=== PATIENT | female | born 1985 | race Caucasian/White ===

== ENCOUNTER 2016-11-01 06:52 | Emergency (ER) | payer BC ==
--- NOTE | 2016-11-01 07:46 | EDM.PDOC ---
ED HPI GENERAL MEDICAL PROBLEM - General Chief Complaint: Respiratory Problem Stated Complaint: SOB,Cough, Rib pain Preq Time Seen by Provider: 11/01/16 07:25 Source of Information: Reports: Patient History Limitations: Reports: No Limitations - History of Present Illness INITIAL COMMENTS - FREE TEXT/NARRATIVE: Pt is a 8 month female, who presents to the emergency room with vague complaints. She claims that she had some pain in her right lower chest last night. pain is sharp and stabbing type, and would hurt when she took deep breath. No fever or chills. She went to bed and in the morning she claims that her pain has got worse in the same area. Hurts to take deep breath or on pressure over one particular part of the lower chest to pressure. She claims she is short of breath( but is breathing at the rate of 12-14/minute and her SPO2 on room air is 99%, appears very comfortable). Has been feeling good movements. No vaginal discharge or pelvic pain. NO trauma to the chest or abdomen. She feels better sitting and lying down makes it worse.Rates her pain at 9/10 when she lyes down and 6/10 when she sits. She has noticed some cough today. 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 Denies: Shortness of Breath , Wheezing, Sputum Cardiovascular: Denies: Chest Pain, Lightheadedness GI/Abdominal: Reports: Flatus. Denies: Abdominal Pain, Constipation, Distension , Nausea, Vomiting : Denies: Dysuria, Flank Pain Musculoskeletal: Denies: Joint Pain, Joint Swelling Skin: Denies: Pruritis, Rash, Erythema Neurological: Denies: Confusion, Dizziness ED EXAM, GENERAL - Physical Exam Exam: See Below Exam Limited By: No Limitations General Appearance: Alert, WD/WN, No Apparent Distress Eye Exam: Bilateral Eye: EOMI, PERRL Ears: Normal External Exam, Normal Canal, Hearing Grossly Normal, Normal TMs Ear Exam: Bilateral Ear: Auricle Normal, Canal Normal, TM normal Nose: Normal Inspection, Normal Mucosa, No Blood Throat/Mouth: Normal Inspection, Normal Lips, Normal Teeth, Normal Gums, Normal Oropharynx, Normal Voice, No Airway Compromise Head: Atraumatic, Normocephalic Neck: Normal Inspection, Supple, Non-Tender, Full Range of Motion Respiratory/Chest: No Respiratory Distress, Lungs Clear, Normal Breath Sounds, No Accessory Muscle Use, Chest Non-Tender, Other (Pt is not short of breath, she is brething normally, she describes her chest apin with deep breathing as shortness of breath.) Cardiovascular: Normal Peripheral Pulses, Regular Rate, Rhythm, No Edema, No Gallop, No JVD, No Murmur, No Rub Peripheral Pulses: 2+: Radial (L), Radial (R) GI/Abdominal: Normal Bowel Sounds, Soft, No Organomegaly, No Distention, No Abnormal Bruit, No Mass, Tender (Pt is tender over the right upper quadrant of the abdomen. The pain is superficial in the abdominal wall over the in the right upper quadrant only in a particular area about 2cm by 2cm just distal to the costal margin. No mass or swelling felt. no rib cage tenderness along the right costal margin.), Other (Gravid uterus. heart tones are reactive and reassuring.) Course - Vital Signs Text/Narrative:: Pt's CBC is normal. CMP is normal. UA is WNL. Chest xray does not show consolidation . Pt has a gradually worsening right upper quadrant , abdominal wall pain. It does appear like it is of musculoskelatal origin. Hurts with deep breathing and movement. it improves with sitting up and worse with lying down makes it more of musculoskelatal origin ( as it hurts more when she lyes down is because of the gravid uterus pushing upwards into the upper abdomen and less pain with sitting is because of the pull of the uterus into lower abdomen and pelvis). This could have happen from strain to abdominal wall with some activity like suddenly sitting or getting up or lifting something heavy, which patient thinks has not happened. Did get abdominal ultrasound today.Which shows Gall stones in the Bladder which appears like incidental finding. I have discussed the labs and ultrasound results with Dr. Shultz, her OB-DEVELOPMENT SPECIALIST at [place]. Advised intermittent heat tot he area and tylenol 50mmg every 6 hrs as needed. Followup with Dr. Shultz in next1 wk. Last Recorded V/S: Last Vital Signs Temp 98.7 F 11/01/16 07:55 Pulse 90 11/01/16 07:55 Resp 12 11/01/16 07:55 BP 109/69 11/01/16 07:55 Pulse Ox 100 11/01/16 07:55 - Orders/Labs/Meds Orders: Active Orders 24 hr Category Date Time Status Abdomen Ltd [US] Stat Exams 11/01/16 07:40 Ordered Chest 1V Frontal [CR] Stat Exams 11/01/16 07:25 Taken Labs: Laboratory Tests 11/01/16 11/01/16 11/01/16 Range/Units 07:20 07:25 07:40 WBC 11.4 H (4.0-11.0) K/uL RBC 4.19 (3.80-5.80) M/uL Hgb 13.1 (11.5-16.5) g/dL Hct 38.0 (37.0-47.0) % MCV 91 (76-96) fL MCH 31.3 (27.0-32.0) pg MCHC 34.5 (31.0-35.0) g/dL RDW 13.2 (11.0-16.0) % Plt Count 270 (150-500) K/uL MPV 9.7 (6.0-10.0) fL Neut % (Auto) 82.2 H (45.0-70.0) % Lymph % (Auto) 12.9 L (20.0-40.0) % Banner % (Auto) 4.0 (3.0-10.0) % Eos % (Auto) 0.6 L (1.0-5.0) % Baso % (Auto) 0.3 (0.0-0.5) % Neut # (Auto) 9.37 H (2.00-7.50) K/uL Lymph # (Auto) 1.47 L (1.50-4.00) K/uL Banner # (Auto) 0.46 (0.20-0.80) K/uL Eos # (Auto) 0.07 (0.04-0.40) K/uL Baso # (Auto) 0.03 (0.02-0.10) K/uL Sodium 137 (136-145) mmol/L Potassium 4.2 (3.5-5.1) mmol/L Chloride 103 (98-107) mmol/L Carbon Dioxide 23.6 (21.0-32.0) mmol/L Anion Gap 14.6 (5.0-15.0) mmol/L BUN 7 L (8-26) mg/dL Creatinine 0.69 (0.55-1.02) mg/dL Est Cr Clr Drug Dosing 123.46 mL/min Estimated GFR (MDRD) > 60 (>60) MLS/MIN BUN/Creatinine Ratio 10.1 (6-25) Glucose 129 H (74-100) mg/dL Calcium 9.1 (8.5-10.1) mg/dL Total Bilirubin 0.2 (0.0-1.0) mg/dL AST 13 L (15-37) U/L ALT 25 (12-78) U/L Alkaline Phosphatase 76 (46-116) U/L Total Protein 6.8 (6.4-8.2) g/dL Albumin 3.0 L (3.4-5.0) g/dL Globulin 3.8 (2.2-4.2) g/dL Albumin/Globulin Ratio 0.8 (0.8-2.0) Urine Color Yellow Urine Appearance Clear (CLEAR) Urine pH 6.0 (5.0-8.0) Ur Specific [place] 1.010 (1.003-1.030) Urine Protein Negative (NEGATIVE) mg/dL Urine Glucose (UA) 100 H (NEGATIVE) mg/dL Urine Ketones Negative (NEGATIVE) mg/dL Urine Occult Blood Negative (NEGATIVE) Urine Nitrite Negative (NEGATIVE) Urine Bilirubin Negative (NEGATIVE) Urine Urobilinogen 0.2 (0.2-1.0) E.U./dL Ur Leukocyte Esterase Small H (NEGATIVE) Urine RBC Not seen /HPF Urine WBC 0-5 H /HPF Ur Squamous Epith Cells Moderate /HPF Urine Bacteria Few /HPF Departure - Departure Time of Disposition: 10:15 Disposition: Home, Self-Care 01 Condition: Fair Clinical Impression: Abdominal wall pain in right flank - Discharge Information Instructions: Third Trimester of , [id number], Muscle Strain Referrals: PCP,Unknown [Primary Care Provider] - Forms: ED Department Discharge - Problem List & Annotations (1) Abdominal wall pain in right flank SNOMED Code(s): 945356857 Code(s): R10.9 - UNSPECIFIED ABDOMINAL PAIN Status: Acute Current Visit: Yes - Problem List Review Problem List Initiated/Reviewed/Updated: Yes - My Orders Last 24 Hours: My Active Orders 11/01/16 07:25 Chest 1V Frontal [CR] Stat 11/01/16 07:40 Abdomen Ltd [US] Stat - Assessment/Plan Last 24 Hours: My Active Orders 11/01/16 07:25 Chest 1V Frontal [CR] Stat 11/01/16 07:40 Abdomen Ltd [US] Stat Assessment:: Right upper abdominal wall pain in 3rd trimester of Plan: Pt's CBC is normal. CMP is normal. UA is WNL. Chest xray does not show consolidation . Pt has a gradually worsening right upper quadrant , abdominal wall pain. It does appear like it is of musculoskelatal origin. Hurts with deep breathing and movement. it improves with sitting up and worse with lying down makes it more of musculoskelatal origin ( as it hurts more when she lyes down is because of the gravid uterus pushing upwards into the upper abdomen and less pain with sitting is because of the pull of the uterus into lower abdomen and pelvis). This could have happen from strain to abdominal wall with some activity like suddenly sitting or getting up or lifting something heavy, which patient thinks has not happened. Did get abdominal ultrasound today.Which shows Gall stones in the Bladder which appears like incidental finding. I have discussed the labs and ultrasound results with Dr. Shultz, her OB-DEVELOPMENT SPECIALIST at [place]. Advised intermittent heat tot he area and tylenol 50mmg every 6 hrs as needed. Followup with Dr. Shultz in next 1 wk.
[2016-11-01 07:56] VITALS: BP 109/69
--- NOTE | 2016-11-01 11:10 | CR ---
DATE OF SERVICE: 11/01/16 CLINICAL DATA: pain in ribs, shortness of breath in PA CHEST: No priors. The heart size is normal. There is mild eventration of the right hemidiaphragm with mild atelectatic changes in both lung bases. The lungs are otherwise clear. No pneumothorax. No pleural effusions. No other significant findings. [id number] [facility]
--- NOTE | 2016-11-01 11:14 | US ---
DATE OF SERVICE: 11/01/16 CLINICAL DATA: right upper quadrant pain RIGHT UPPER QUADRANT ULTRASOUND: Gallbladder is normal size with normal wall thickness. There are multiple mobile gallstones noted within the gallbladder. No pericholecystic fluid. The liver is normal size. It does have mildly heterogeneous echotexture. No focal hepatic lesions. No biliary duct dilatation. The common bile duct measures 5 mm. The head and body of the pancreas appear normal. The tail is obscured. The right kidney measures 11.7 cm in length. There is mild hydronephrosis most likely related to the . The right kidney otherwise appears normal. No other significant findings. [id number] [facility] [place]
== END 2016-11-01 10:10 | disposition home or self-care (01) ==
LOC: LB.ED 06:52
DX: O99.89 Other specified diseases and conditions complicating pregnancy, childbirth and the puerperium (principal); R10.11 Right upper quadrant pain; Z79.899 Other long term (current) drug therapy; Z98.890 Other specified postprocedural states
CPT/HCPCS: 36415; 71010; 76705; 80053; 81001; 85025; 99284-25